=== PATIENT | female | born 1995 | race Caucasian/White ===

== ENCOUNTER 2017-04-11 17:22 | Inpatient (IN) | payer BC ==
[~2017-04-11] VITALS: Ht 170.1 cm; Wt 66.4 kg
[2017-04-11 17:32] VITALS: BP 135/88
--- NOTE | 2017-04-11 18:00 | NUR ---
UPON ENTERING PATIENTS ROOM TODDLER GUIDE WAS ATTEMPTING TO DRAW BLOODWORK. PATIENT REFUSED BLOODWORK AT THIS TIME. PATIENT ASKED IF SHE WAS GOING TO AGREE WITH IV FLUIDS. PATIENT REFUSING IV ACCESS AT THIS TIME. PATIENT USING PROFANITY AT THIS TIME IN ROOM. WHEN ASKED WHY PATIENT IS HERE TO DO A NURSE ASSESSMENT PATIENT STATED TO THIS NURSE "I DONT KNOW WHY 3-4 F PEOPLE HAVE TO ASK ME WHY IM HERE DONT YOU GUYS COMMUNICATE." PATIENT STILL SWEARING WHEN THIS NURSE LEFT ROOM.
--- NOTE | 2017-04-11 18:15 | NUR ---
PATIENT HAS LEFT THE ER AT THIS TIME.
--- NOTE | 2017-04-11 18:15 | NUR ---
PATIENT CURRENTLY IN ROOM USING PROFANITY AT THIS TIME TOWARDS MOTHER WHILE IN CONVERSATION. PATIENT GIVEN VISTARIL IN MEDICATION CUP. PATIENT HITS IT WITH HER HAND AND STATES IT WONT HELP HER. PATIENT STILL SWEARING AT THIS TIME.
--- NOTE | 2017-04-11 18:35 | NUR ---
PATIENT RETURNS TO ER SEEKING MEDICAL TREATMENT. DR CERON IN ROOM WITH PATIENT AT THIS TIME SPEAKING WITH PATIENT.
[2017-04-11 18:39] LABS: BILIRUBIN NEGATIVE (NEGATIVE); BLOOD NEGATIVE (NEGATIVE); CLARITY SL CLOUDY (CLEAR); COLOR YELLOW (YELLOW); GLUCOSE NEGATIVE (NEGATIVE); KETONE NEGATIVE (NEGATIVE); LEUKO ESTERASE NEGATIVE (NEGATIVE); NITRITE NEGATIVE (NEGATIVE); PH 6.5 (5.0-9.0); UROBILINOGEN 0.2 E.U./dl (0.2-1.0)
[2017-04-11 18:46] LABS: BACTERIA 1+; RBC 0-2 rbc/hpf (0-2)
[2017-04-11 18:48] LABS: URINE AMPHETAMINES > 1000 (1000ng/ml); URINE BARBITURATES < 200 (200ng/ml); URINE BENZODIAZEPINES < 200 (200ng/ml); URINE CANNABINOIDS (THC) > 50 (50ng/ml); URINE COCAINE < 300 (300ng/ml); URINE METHADONE < 300 (300ng/ml); URINE OPIATES < 300 (300ng/ml)
[2017-04-11 18:50] LABS: URINE PHENCYCLIDINE < 25 (25ng/ml)
--- NOTE | 2017-04-11 18:58 | NUR ---
PATIENT STATES THAT SHE IS HERE FOR FOR WITHDRAWL AT THIS TIME. STATES SHE HAS USED FOR ABOUT 8 YEARS. LAST USED LAST NIGHT. PATIENT STATES THAT SHE USES HEROIN AND METH. PATIENT STATES SHE HAS BEEN THROUGH REHAB TREATMENT BEFORE FOR THIS. STATES CO RESTLESSNESS, CHILLS, ABDOMINAL CRAMPING.
[2017-04-11 19:18] LABS: BASO % 0.5 % (0.0-1.0); EOS # 0.1 10*3/uL (0.0-0.4); EOS % 1.9 % (1.0-4.0); HEMATOCRIT 34.1 % (37.0-47.0); HEMOGLOBIN 11.5 g/dl (12.0-16.0); LYMPH # 2.8 10*3/uL (1.3-4.4); LYMPH % 43.6 % (27.0-41.0); MEAN CORPUSCULAR HGB 29.3 pg (27.0-31.0); MEAN CORPUSCULAR HGB CONC 33.7 g/dl (33.0-37.0); MEAN PLATELET VOLUME 9.5 fl (9.6-12.3); MONO # 0.5 10*3/uL (0.1-1.0); MONO % 7.2 % (3.0-9.0); NEUT % 46.2 % (47.0-73.0); PLATELET COUNT AUTOMATED 246 10*3/uL (130-400); RED BLOOD COUNT 3.92 10*6/uL (4.10-5.10); RED CELL DISTRI WIDTH 13.6 % (0-14.5); WHITE BLOOD COUNT 6.4 10*3/uL (4.8-10.8)
[2017-04-11 19:37] LABS: ALBUMIN 3.5 gm/dl (3.1-4.5); ALKALINE PHOSPHATASE 68 U/L (45-117); BUN 14 mg/dl (7-24); CHLORIDE 99 mmol/L (98-107); CREATININE 0.66 mg/dL (0.55-1.02); POTASSIUM 4.2 mmol/L (3.5-5.1); SGOT/AST 33 IU/L (3-35); SGPT/ALT 26 U/L (12-78); SODIUM 137 mmol/L (136-145); TOTAL PROTEIN 8.6 gm/dL (6.4-8.2)
[2017-04-11 20:00] VITALS: BP 128/83
--- NOTE | 2017-04-11 20:30 | NUR ---
PATIENT ALERT AND ORIENTED. VOICES NO COMPLAINTS. MOTHER HAD BROUGHT IN CLOTHES IN BAG. DURING THE ITEM CHECK AN EXACTO KNIFE WAS LOCKED IN THE CABINET ALONG WITH 3 PACKS OF CIGARETTES AND A STEWARDESSES TEACHER. HOME MEDICATION WAS TAKEN TO THE PHARMACY. PATIENT HAS BEEN COOPERATIVE. LUNGS CLEAR, NO EDEMA, DENIES SHORTNESS OF BREATH AND DENIES PAIN.
--- NOTE | 2017-04-11 20:55 | NUR ---
Time: 1999 A 21 year old FEMALE admitted to 5E under services of SAAD REAL DO. Pt. arrived via ambulatory from ER. Chief complaint: OPIATE WITHDAWAL. EHSAN GRANT
[2017-04-11] MEDS ORDERED: NEURONTIN600 MG PO (21:36)
[2017-04-11] MEDS ORDERED: PROZAC40 M1 PO (21:37)
[2017-04-12] VITALS (7 sets, daily range): BP systolic 99–118; BP diastolic 51–71
--- NOTE | 2017-04-12 01:54 | NUR ---
24 HR chart check completed.
--- NOTE | 2017-04-12 08:55 | NUR ---
PRN PAIN MED GIVEN FOR 7/10 LEFT SHOULDER AND NECK PAIN.
--- NOTE | 2017-04-12 09:55 | NUR ---
PRN PAIN MED EFFECTIVE PT REPORTS PAIN 3/10 NOW.
--- NOTE | 2017-04-12 12:07 | NUR ---
PRN REQUIP GIVEN FOR RESTLESS LEGS.
--- NOTE | 2017-04-12 12:07 | NUR ---
PRN VISTARIL GIVEN FOR ANXIETY.
--- NOTE | 2017-04-12 12:08 | NUR ---
PRN ZOFRAN GIVEN FOR NAUSEA.
--- NOTE | 2017-04-12 13:05 | NUR ---
PRN REQUIP MINIMALLY EFFECTIVE, PT REPORTS RESTLESS LEGS IMPROVING.
--- NOTE | 2017-04-12 13:05 | NUR ---
PRN ZOFRAN EFFECTIVE, PT DENIES NAUSEA.
--- NOTE | 2017-04-12 13:05 | NUR ---
PRN VISTARIL EFFECTIVE FOR ANXIETY, PT REPORTS STILL ANXIOUS BUT IMPROVING.
--- NOTE | 2017-04-12 15:54 | NUR ---
D/C PLANNING: PATIENT WANTS TO GO TO [facility] IN [place], [place]. PATIENT MAY NEED TRANSPORTATION. AGRICULTURAL ENGINEERING TECHNICIAN WILL CONTACT INSURANCE PROVIDER TO SEE IF THAT IS POSSIBLE. AGRICULTURAL ENGINEERING TECHNICIAN WILL KEEP [facility] UPDATED. AILIN MCCRARY B.A. AGRICULTURAL ENGINEERING TECHNICIAN
--- NOTE | 2017-04-12 19:40 | NUR ---
PATIENT MEDICATED WITH VISTARIL, ROBAXIN AND MOTRIN PER PRN ORDER FOR C/O ANXIETY, ACHINESS AND GENERALIZED DISCOMFORT.
--- NOTE | 2017-04-12 22:00 | NUR ---
PATIENT RESTING QUIETLY. NO FURTHER C/O VOICED
[2017-04-13] VITALS: BP 113/60
[2017-04-13 08:00] VITALS: BP 119/51
--- NOTE | 2017-04-13 08:27 | NUR ---
PRN NICODERM PATCH APPLIED, PT DENIES DESIRE TO SMOKE.
--- NOTE | 2017-04-13 08:27 | NUR ---
PRN VISTARIL GIVEN FOR ANXIETY.
--- NOTE | 2017-04-13 08:27 | NUR ---
PRN MOTRIN GIVEN FOR 5/10 PAIN LEFT SHOULDER AND RIB AREA.
--- NOTE | 2017-04-13 09:27 | NUR ---
PRN VISTARIL EFFECTIVE, PT REPORTS FEELING LESS ANXIOUS.
--- NOTE | 2017-04-13 09:27 | NUR ---
PRN PAIN MED MINIMALLY EFFECTIVE, PT REPORTS PAIN 3/10.
--- NOTE | 2017-04-13 15:49 | NUR ---
D/C PLAN: PATIENT IS GOING TO [facility] IN [place] FOR INPATIENT. FAMILY IS SETTING UP TRANSPORTATION. PATIENT UNDERSTANDS AND AGREES TO AFTERCARE PLAN. AILIN MCCRARY B.A. REPORTING ANALYST
--- NOTE | 2017-04-13 16:08 | NUR ---
PATIENT WILL NEED TRANSPORTATION SET UP UPON DISCHARGE. AILIN MCCRARY B.A. SHOER
[2017-04-13 16:40] VITALS: BP 121/58
--- NOTE | 2017-04-13 17:34 | NUR ---
prn vistaril given for pt report anxiety.
--- NOTE | 2017-04-13 17:34 | NUR ---
prn requip given for restless legs per pt request.
[2017-04-13 20:24] VITALS: BP 131/61
--- NOTE | 2017-04-13 21:22 | NUR ---
PATIENT MEDICATED WITH TRAZODONE AND ROBAXIN PER PRN ORDER FOR C/O NUSCLE ACHINESS AND INABILITY TO SLEEP. SEE EMAR. REINFORCED USE OF CALL LIGHT.
--- NOTE | 2017-04-13 22:34 | NUR ---
Patient resting. Responding to scheduled medications with fewer complaints of pain and anxiety.
--- NOTE | 2017-04-13 23:16 | NUR ---
PATIENT MEDICATED WITH VISTARIL PER PRN ORDER AND PATIENT REQUEST FOR C/O ANXIETY.
[2017-04-14] VITALS: BP 115/61
--- NOTE | 2017-04-14 02:00 | NUR ---
PATIENT RESTING QUIETLY. NO FURTHER C/O VOICED.
[2017-04-14 06:46] LABS: BUN 9 mg/dl (7-24); CREATININE 0.65 mg/dL (0.55-1.02)
[2017-04-14 08:00] VITALS: BP 120/58
--- NOTE | 2017-04-14 09:55 | NUR ---
PT MEDICATED WITH ROBAXIN FOR MUSCLE ACHES AND VISTARIL FOR ANXIETY, WILL MONITOR
--- NOTE | 2017-04-14 11:46 | NUR ---
ROBAXIN AND VISTARIL EFFECTIVE, WILL MONITOR
[2017-04-14 12:00] VITALS: BP 131/66
[2017-04-14 16:00] VITALS: BP 132/58
--- NOTE | 2017-04-14 19:31 | NUR ---
PATIENT RESTING IN BED WATCHING TV. NO NEEDS MADE. DENIES ANY WITHDRAWAL SYMPTOMS. BED IN LOWEST POSITION, CALL LIGHT IN REACH
[2017-04-15] VITALS: BP 104/51
--- NOTE | 2017-04-15 03:42 | NUR ---
24 HR chart check completed.
--- NOTE | 2017-04-15 05:42 | NUR ---
PATIENT RESTING IN BED WITH NO S/S OF DISTRESS. BED IN LOWEST POSITION, CALL REYES GILES
[2017-04-15 08:00] VITALS: BP 102/50
--- NOTE | 2017-04-15 08:17 | NUR ---
PT MEDICATED WITH VISTARIL FOR ANXIETY AND ROBAXIN FOR MUSCLE ACHES . WILL MONITOR
--- NOTE | 2017-04-15 11:00 | NUR ---
VISTARIL AND ROBAXIN EFFECTIVE, WILL MONITOR
[2017-04-15 12:00] VITALS: BP 101/49
--- NOTE | 2017-04-15 13:26 | NUR ---
PT REQUESTED AND GIVEN ROBAXIN FOR MUSCLE ACHES AND VISTARIL FOR ANXIETY. WILL MONITOR
--- NOTE | 2017-04-15 15:07 | NUR ---
PT RESTING IN BED, EYES CLOSED ROBAXIN AND VISTARIL APPEAR EFFECTIVE, WILL MONITOR
[2017-04-15 16:00] VITALS: BP 108/57
--- NOTE | 2017-04-15 17:11 | NUR ---
PT MEDICATED WITH BENTYL FOR STOMACH CRAMPS AND MOTRIN FOR MUSCLE ACHES. WILL MONITOR
[2017-04-15 20:00] VITALS: BP 99/62
--- NOTE | 2017-04-15 21:09 | NUR ---
PATIENT MEDICATED WITH PRN VISTARIL FOR ANXIETY. WILL MONITOR
[2017-04-16] VITALS: BP 108/53
--- NOTE | 2017-04-16 01:58 | NUR ---
PATIENT RESTING IN BED WITH NO S/S OF DISTRESS. EYES CLOSED. MEDICATION SEEMS EFFECTIVE
--- NOTE | 2017-04-16 02:12 | NUR ---
24 HR chart check completed.
--- NOTE | 2017-04-16 05:44 | NUR ---
PATIENT REFUSING LABS THIS MORNING
[2017-04-16 08:00] VITALS: BP 105/54
[2017-04-16] MEDS ORDERED: ATARAX,VISTARIL50 MG PO (11:08)
[2017-04-16] MEDS ORDERED: ZOFRAN 4 MG ED2 TAB PO (11:08)
[2017-04-16] MEDS ORDERED: LEVAQUIN750 M1 PO (11:08)
[2017-04-16 16:00] VITALS: BP 110/59
--- NOTE | 2017-04-16 16:47 | NUR ---
SPOKE WITH PATIENTS MOTHER, JENNYFER CASTILLO REGARDING PATIENTS TRANSPORT TO [facility] IN [place]. PATIENTS MOTHER DID NOT WANT TO DRIVE 1.5 HOURS TO [facility] AND ANOTHER 1.5 HR. TO THE TREATMENT CENTER. SHE WOULD PREFER THAT SHE BE TRANSFERRED BY AMBULANCE. PER DR. RAMIREZ PATIENT DOES NOT HAVE A MEDICAL NEED TO BE TRANSPORTED BY AMBULANCE. AILIN NOTIFIED PATIENTS MOTHER WITH [employer]ICI[employer] MESSAGE. THE PATIENTS MOTHER CALLED ME TO CLARIFY WHY BECAUSE SHE HAS THE COVERAGE AND THE LAST TIME [facility] WAS HOSPITALIZED THAT HOSPITAL MADE ALL ARRANGEMENTS TO HAVE HER TRANSPORTED BY AMBULANCE. EXPLAINED IN DETAIL SHE HAS NO MEDICAL NEED FOR AN AMBULANCE. PATIENTS MOTHER MADE ARRANGEMENTS FOR A STAFF MEMBER FROM [facility] TO PICK [facility] UP AND TAKE HER FOR CONTINUED REHABILITATION TREATMENT.
--- NOTE | 2017-04-16 19:38 | NUR ---
Discharge instructions reviewed with patient/family. Patient receptive and verbalizes understanding. Follow-up care arranged. Written instructions given to patient. I escorted patient to [facility] and met Anabella Salinas the Optical Goods Drilling Machine Operator of [email or web address]. KVNG MANE
== END 2017-04-16 19:38 | disposition home or self-care (01) | DRG 896 ==
LOC: ED 17:22 → EDHOLD 17:55 → 5E 18:53
PROVIDERS: Internal Medicine; ADMIT Internal Medicine
DX: F11.23 Opioid dependence with withdrawal (principal); J15.6 Pneumonia due to other Gram-negative bacteria; D64.9 Anemia, unspecified; F15.10 Other stimulant abuse, uncomplicated; F12.10 Cannabis abuse, uncomplicated; Z71.6 Tobacco abuse counseling; Z72.0 Tobacco use; Z88.0 Allergy status to penicillin; Z79.899 Other long term (current) drug therapy